=== PATIENT | female | born 1940 | race Caucasian/White ===

== ENCOUNTER 2017-02-10 15:12 | Emergency (ER) | payer MEDICARE, BC ==
[~2017-02-10] VITALS: Ht 165.1 cm; Wt 89.0 kg
[2017-02-10 15:16] VITALS: Ht 165.1 cm; Wt 89.0 kg
[2017-02-10 19:17] LABS: URINE BLOOD (Dip) POC Negative (NEGATIVE)
[2017-02-10] MEDS ORDERED: SOD CHLORIDE 0.9% 1,000 ML IV STA (19:26)
[2017-02-10] MEDS ORDERED: KETOROLAC 30 MG INJ IV STA (19:26)
[2017-02-10] MEDS ORDERED: ONDANSETRON 4 MG INJ IV STA (19:26)
[2017-02-10 19:58] LABS: ADD SCAN DIFF NO
[2017-02-10 19:59] VITALS: TEMP 98
[2017-02-10 20:00] LABS: BASOPHILS % 0.3 % (0.0-2.0); EOSINOPHILS # 0.1 10^3/ul (0.0-0.5); EOSINOPHILS % 1.6 % (0.0-7.0); HEMATOCRIT 43.2 % (37.0-47.0); HEMOGLOBIN 14.1 g/dl (12.0-16.0); LYMPHOCYTES % 25.6 % (15.0-51.0); MEAN CORPUSCULAR HEMOGLOBIN 28.5 pg (29.0-33.0); MEAN CORPUSCULAR HGB CONC 32.6 g/dl (32.0-37.0); MEAN CORPUSCULAR VOLUME 87.4 fl (82.0-101.0); MEAN PLATELET VOLUME 12.2 fl (7.4-10.4); MONOCYTE # 0.6 10^3/ul (0.3-0.9); MONOCYTES % 7.5 % (0.0-11.0); NEUTROPHIL # 5.2 10^3/ul (1.6-7.5); NEUTROPHILS % 64.7 % (39.0-77.0); PLATELET COUNT 204 10^3/UL (140-415); RED BLOOD COUNT 4.94 10^6/ul (4.20-5.40)
[2017-02-10 20:02] LABS: ADD UMIC YES; URINE BILIRUBIN (Dip) NEGATIVE (NEGATIVE); URINE BLOOD (Dip) NEGATIVE (NEGATIVE); URINE COLOR LT. YELLOW (YELLOW); URINE GLUCOSE (Dip) NEGATIVE (NEGATIVE); URINE KETONES (Dip) TRACE (NEGATIVE); URINE LEUKOCYTE ESTERASE (Dip) 1+ (NEGATIVE); URINE NITRITE (Dip) NEGATIVE (NEGATIVE); URINE TOTAL PROTEIN (Dip) NEGATIVE (NEGATIVE); URINE UROBILINOGEN (Dip) 0.2 E.U./dL (0.1-1.0)
[2017-02-10 20:17] LABS: ALBUMIN 4.1 g/dl (3.3-4.9)
[2017-02-10 20:18] LABS: POTASSIUM 3.9 mmol/L (3.5-5.1)
[2017-02-10 20:19] LABS: SQUAMOUS EPITHELIAL CELL,UR RARE; URINE RBCS NONE SEEN /HPF (0)
[2017-02-10 20:20] LABS: ALBUMIN/GLOBULIN RATIO 1.2; BILIRUBIN,INDIRECT 0.2 mg/dl (0-1.1); BILIRUBIN,TOTAL 0.2 mg/dl (0.2-1.3); CREATININE 0.73 mg/dl (0.44-1.00); TOTAL PROTEIN 7.5 g/dl (6.1-8.1)
[2017-02-10 20:21] LABS: CALCIUM 9.3 mg/dl (8.4-10.2)
[2017-02-10] MEDS ORDERED: ASPI325T4 PO (20:24)
[2017-02-10] MEDS ORDERED: DILT240C62 PO (20:25)
[2017-02-10] MEDS ORDERED: DEXL60CA2 PO (20:25)
[2017-02-10] MEDS ORDERED: PRAV20TA63 PO (20:26)
[2017-02-10] MEDS ORDERED: MIRA25TA PO (20:34)
--- NOTE | 2017-02-10 21:16 | RADRPT ---
PROCEDURE: CT abdomen and pelvis without contrast. CLINICAL INDICATION: Right flank pain TECHNIQUE: CT scan of the abdomen and pelvis without contrast was performed. Sagittal and coronal reformatted images were obtained from the axial source images. CTDI = 18.65 mGy; DLP = 982.51 mGy-c m COMPARISON: None available. FINDINGS: Visualized lower thorax: The lung bases are clear, mild traction bronchiectasis of the lower lobes is suggested. There is no evidence for pleural effusion. Liver, gallbladder, pancreas and spleen: The liver is top normal in size with normal contour and at tenuation. There is no evidence for a liver mass or ductal dilatation. The gallbladder is unremark able. No common bile duct abnormality is demonstrated. The pancreas is unremarkable. The spleen i s normal in size. Adrenal glands and genitourinary system: The adrenal glands are normal bilaterally. The kidneys are normal and size, contour and attenuation with no evidence for masses, calculi or hydronephrosis. T he ureters are unremarkable. The urinary bladder is contracted but otherwise unremarkable. The uter us is atrophic compatible with age with no evidence of adnexal mass. No free fluid in the cul-de-sa c is demonstrated. Gastrointestinal system: Small sliding hiatal hernia is present the remainder of the stomach is nor mal in caliber and without wall thickening. The small bowel is normal in caliber with no ileus, obs truction or wall thickening. The appendix and surrounding fat are within the limits of normal. Ext ensive diverticular disease throughout the entire colon is present. There is no evidence for coliti s or diverticulitis. Peritoneum, retroperitoneum, lymph nodes and vessels: The abdominal aorta is normal in caliber. The re is mild aortic and iliac system atherosclerotic calcification. The inferior vena cava is unremar kable. There is no evidence for adenopathy or mass. There is no ascites. Osseous structures and musculoskeletal findings: There is no fracture, lytic or blastic lesion. Dem ineralization and severe spondylosis of the thoracolumbar spine is present, possible diffuse idiopat hic skeletal hyperostosis of the thoracic levels seen. Vacuum disk phenomenon L4-5 and L5-S1 is pre sent No muscular abnormality or soft tissue pathology is present. RPTAT:HJJR IMPRESSION: 1. No evidence of urinary tract calculi or hydronephrosis. 2. Extensive diverticulosis of the colon without evidence of diverticulitis, colitis or appendiciti s. 3. Multilevel thoracolumbar spondylosis and degenerative disk disease at the lowest lumbar levels. 4. Sliding hiatal hernia. 5. Atherosclerotic calcification of the aorta and iliac systems. Physician Yuliana Date Time Electronically viewed and signed by Rufino Mckeon Physician on 02/10/2017 21:16 JR/
[2017-02-10] MEDS ORDERED: HYDR-902 PO (21:48)
[2017-02-10] MEDS ORDERED: ONDA4TAB14 PO (21:48)
[2017-02-10 22:01] VITALS: BP 126/59; PULSE 63; RESP 18
--- NOTE | 2017-02-10 22:20 | ERD ---
ER Documentation Chief Complaint Date/Time DATE: 02/10/17 TIME: 22:19 Chief Complaint AP WITH URGENCY TO URINATED X 1 WEEK HPI Patient is a 76-year-old female with hypertension who presents with abdominal pain. She has right-sided abdominal pain and flank pain which started 1 week ago. It did not go away. It is worse with laying down and at night. It comes and goes. Sharp in nature. She has had no fevers. She has had no treatment as of yet. She has not called her primary doctor as of yet. Upon review of old medical records this is the patient's first visit to the emergency department. She does have a primary doctor. ROS All systems reviewed and are negative except as per history of present illness. Medications Home Meds Active Scripts Ondansetron (Ondansetron Odt) 4 Mg Tab.rapdis, 4 MG PO Q6H Y for NAUSEA AND/OR VOMITING, #30 TAB Prov:BRITT LLAMAS MD 02/10/17 Hydrocodone/Acetaminophen ([place] 10-325 Tablet) 1 Each Tablet, 1 TAB PO Q6H Y for PAIN, #7 TAB Prov:BRITT LLAMAS MD 02/10/17 Reported Medications Mirabegron (Mybetriq) 25 Mg Tab.er.24h, 25 MG PO DAILY Y for PRN, TAB 02/10/17 Pravastatin Sodium* (Pravastatin Sodium*) 20 Mg Tablet, 20 MG PO DAILY, TAB 02/10/17 Dexlansoprazole (Dexilant) 60 Mg Cap.drMariahmp, 60 MG PO BID, #30 CAP 02/10/17 Diltiazem Hcl* (Cartia XT*) 240 Mg Cap.sr.24h, 240 MG PO DAILY, #30 CAP 02/10/17 Aspirin* (Aspirin*) 325 Mg Tablet, 325 MG PO DAILY, TAB 02/10/17 Allergies Allergies: Coded Allergies: No Known Allergy (Unverified , 02/10/17) PMhx/Soc Positive for hypertension Anesthesia Reaction: No Hx Neurological Disorder: No Hx Respiratory Disorders: No Hx Cardiac Disorders: No (arrhythmia) Hx Alcohol Use: No Hx Substance Use: No Hx Tobacco Use: No Smoking Status: Never smoker FmHx Family History: No diabetes Physical Exam Vitals Vital Signs Date Time Temp Pulse Resp B/P Pulse Ox O2 Delivery O2 Flow Rate FiO2 02/10/17 22:01 63 18 126/59 97 Room Air 02/10/17 19:59 98.0 58 17 144/70 99 Room Air 02/10/17 15:16 98.1 81 20 138/65 99 Physical Exam Const: No acute distress Head: Atraumatic Eyes: Normal Conjunctiva ENT: Normal External Ears, Nose and Mouth. Neck: Full range of motion..~ No meningismus. Resp: Clear to auscultation bilaterally Cardio: Regular rate and rhythm, no murmurs Abd: Soft, right-sided flank pain with palpation without rebound or guarding Skin: No petechiae or rashes Back: No midline or flank tenderness Ext: No cyanosis, or edema Neur: Awake and alert Psych: Normal Mood and Affect Result Diagram: 02/10/17194202/10/171942 Results 24 hrs Laboratory Tests Test 02/10/17 19:18 02/10/17 19:30 02/10/17 19:43 Bedside Urine pH (LAB) 5.5 Bedside Urine Protein (LAB) Negative Bedside Urine Glucose (UA) Negative Bedside Urine Ketones (LAB) Trace Bedside Urine Blood Negative Bedside Urine Nitrite (LAB) Negative Bedside Urine Leukocyte Esterase (L Trace Urine Color LT. YELLOW Urine Clarity CLEAR Urine pH 5.5 Urine Specific [place] >=1.030 Urine Ketones TRACE Urine Nitrite NEGATIVE Urine Bilirubin NEGATIVE Urine Urobilinogen 0.2 E.U./dL Urine Leukocyte Esterase 1+ Urine Microscopic RBC NONE SEEN/HPF Urine Microscopic WBC 0-2/HPF Urine Squamous Epithelial Cells RARE Urine Hemoglobin NEGATIVE Urine Glucose NEGATIVE% Urine Total Protein NEGATIVE White Blood Count 8.010^3/ul Red Blood Count 4.9410^6/ul Hemoglobin 14.1g/dl Hematocrit 43.2% Mean Corpuscular Volume 87.4fl Mean Corpuscular Hemoglobin 28.5pg Mean Corpuscular Hemoglobin Concent 32.6g/dl Red Cell Distribution Width 13.0% Platelet Count 27697^3/UL Mean Platelet Volume 12.2fl Neutrophils % 64.7% Lymphocytes % 25.6% Monocytes % 7.5% Eosinophils % 1.6% Basophils % 0.3% Nucleated Red Blood Cells % 0.0/100WBC Neutrophils # 5.210^3/ul Lymphocytes # 2.010^3/ul Monocytes # 0.610^3/ul Eosinophils # 0.110^3/ul Basophils # 0.010^3/ul Nucleated Red Blood Cells # 0.010^3/ul Sodium Level 141mmol/L Potassium Level 3.9mmol/L Chloride Level 103mmol/L Carbon Dioxide Level 27mmol/L Anion Gap 15 Blood Urea Nitrogen 15mg/dl Creatinine 0.73mg/dl Glucose Level 96mg/dl Calcium Level 9.3mg/dl Total Bilirubin 0.2mg/dl Direct Bilirubin 0.00mg/dl Indirect Bilirubin 0.2mg/dl Aspartate Amino Transf (AST/SGOT) 23IU/L Alanine Aminotransferase (ALT/SGPT) 31IU/L Alkaline Phosphatase 90IU/L Total Protein 7.5g/dl Albumin 4.1g/dl Globulin 3.40g/dl Albumin/Globulin Ratio 1.20 Lipase 84U/L Current Medications Medications (Trade) Dose Ordered Sig/Rina Route PRN Reason Start Time Stop Time Status Last Admin Dose Admin Sodium Chloride (NS) 1,000 ml @ 1,000 mls/hr Q1H STAT IV 02/10/17 19:26 02/10/17 20:25 DC 02/10/17 19:45 Ondansetron HCl (Zofran Inj) 4 mg ONCE STAT IV 02/10/17 19:26 02/10/17 19:27 DC 02/10/17 19:44 Ketorolac Tromethamine (Toradol) 30 mg ONCE STAT IV 02/10/17 19:26 02/10/17 19:27 DC 02/10/17 19:45 Procedures/MDM CT scan shows no sign of surgical process per radiology. Patient is a 76-year-old female presents with abdominal pain. Her laboratory studies are basically normal. CT scan shows no sign of surgical process at this time. At this point I doubt appendicitis, cholecystitis, pancreatitis, or bowel obstruction. I believe outpatient management is appropriate. The patient will need to follow-up closely with her primary doctor within 24 hours for reevaluation. She can return for any worsening symptoms. Departure Diagnosis: Primary Impression: Abdominal pain Abdominal location: generalized Qualified Code: R10.84 - Generalized abdominal pain Condition: Fair Patient Instructions: Abdominal Pain Referrals: VIOLET PARDO (PCP) Additional Instructions: FOLLOW UP WITH YOUR PRIMARY CARE PHYSICIAN TOMORROW.Return to this facility if you are not improving as expected. BRITT LLAMAS MD February 10, 2017 22:20
== END 2017-02-10 22:01 | disposition home or self-care (01) ==
LOC: E/R 15:12
DX: R10.84 Generalized abdominal pain (principal); I10 Essential (primary) hypertension; Z79.82 Long term (current) use of aspirin
CPT/HCPCS: 36415; 74176; 80053; 81001; 83690; 85025; 96374; 96375; 99285; J1885; J2405; J7030; 81003

== ENCOUNTER 2017-11-08 02:08 | Emergency (ER) | END 2017-11-08 06:05 | disposition home or self-care (01) ==